=== PATIENT | female | born 1990 | race Two or more races ===

== ENCOUNTER 2018-08-28 15:44 | Outpatient (CLI) | payer OTHER | END 2018-08-28 16:30 | disposition home or self-care (01) | LOC: OBS/DEL 15:44 | DX: O26.892 Other specified pregnancy related conditions, second trimester (principal); R10.2 Pelvic and perineal pain; M54.5 Low back pain; Z34.02 Encounter for supervision of normal first pregnancy, second trimester ==

== ENCOUNTER 2018-12-12 05:32 | Inpatient (IN) | payer OTHER ==
[~2018-12-12] VITALS: Ht 152.4 cm; Wt 98.0 kg
[2018-12-12] MEDS ORDERED: PRENATAL CAPLE1 EAC1 PO (08:54)
[2018-12-13] MEDS ORDERED: RHOGAM ULTR1500 UNIT IM (06:55)
== END 2018-12-15 10:54 | disposition home or self-care (01) | DRG 788 ==
LOC: OBS/DEL 05:32 → LDR 08:02 → OB/GYN 08:02 → O/R 13:32 → OB/GYN 17:04
PROVIDERS: ADMIT Obstetrics & Gynecology
PROC: 4A0HXFZ Measurement of Products of Conception, Cardiac Rhythm, External Approach (ICD-10-PCS; 2018-12-12)
PROC: 10D00Z1 Extraction of Products of Conception, Low, Open Approach (ICD-10-PCS; principal; 2018-12-12 11:00)
DX: O82 Encounter for cesarean delivery without indication (principal); Z3A.39 39 weeks gestation of pregnancy; Z37.0 Single live birth; O33.1 Maternal care for disproportion due to generally contracted pelvis

== ENCOUNTER → 2019-11-15 | Outpatient (CLI) | payer OTHER ==
[~2019-11-15] MED LIST: PRENATAL CAPLE1 EAC1 PO; RHOGAM ULTR1500 UNIT IM
== END | disposition home or self-care (01) ==
LOC: PRENATAL 08:00
PROVIDERS: ATTEND Obstetrics & Gynecology Maternal & Fetal Medicine
DX: O35.0XX1 Maternal care for (suspected) central nervous system malformation in fetus, fetus 1 (principal); O35.3XX0 Maternal care for (suspected) damage to fetus from viral disease in mother, not applicable or unspecified; O34.211 Maternal care for low transverse scar from previous cesarean delivery; Z36.89 Encounter for other specified antenatal screening

== ENCOUNTER 2020-01-25 03:21 | Outpatient (CLI) | payer OTHER | END 2020-01-25 10:55 | disposition home or self-care (01) | LOC: OBS/DEL 03:21 | PROVIDERS: ATTEND Obstetrics & Gynecology | DX: O60.03 Preterm labor without delivery, third trimester (principal); O21.8 Other vomiting complicating pregnancy ==

== ENCOUNTER 2020-02-18 18:21 | Inpatient (IN) | payer OTHER ==
[~2020-02-18] VITALS: Ht 152.4 cm; Wt 3.6 kg
[2020-02-18] MEDS ORDERED: PRENATAL TABLE1 EAC1 PO (19:04)
== END 2020-02-21 15:40 | disposition home or self-care (01) | DRG 785 ==
LOC: OB/GYN 18:21 → LDR 18:21 → O/R 22:00 → OB/GYN 22:58
PROVIDERS: ADMIT Obstetrics & Gynecology; ATTEND Obstetrics & Gynecology
PROC: 0UL70ZZ Occlusion of Bilateral Fallopian Tubes, Open Approach (ICD-10-PCS; 2020-02-18)
PROC: 4A1HXCZ Monitoring of Products of Conception, Cardiac Rate, External Approach (ICD-10-PCS; 2020-02-18)
PROC: 10D00Z1 Extraction of Products of Conception, Low, Open Approach (ICD-10-PCS; principal; 2020-02-18 18:00)
DX: O82 Encounter for cesarean delivery without indication (principal); Z20.828 Contact with and (suspected) exposure to other viral communicable diseases; Z3A.39 39 weeks gestation of pregnancy; Z37.0 Single live birth; Z30.2 Encounter for sterilization